=== PATIENT | female | born 1970 | race Two or more races ===

== ENCOUNTER 2021-01-17 23:09 | Emergency (ER) | payer MEDICAID ==
[~2021-01-17] VITALS: Ht 162.6 cm; Wt 64.0 kg
[2021-01-18] VITALS: BP 133/79
== END 2021-01-18 00:02 | disposition home or self-care (01) ==
LOC: ER 23:09
DX: G56.00 Carpal tunnel syndrome, unspecified upper limb (principal); E78.00 Pure hypercholesterolemia, unspecified; Z90.710 Acquired absence of both cervix and uterus
CPT/HCPCS: 99282